=== PATIENT | female | born 1960 | race Caucasian/White ===

== ENCOUNTER 2019-04-13 19:41 | Inpatient (IN) | payer BC ==
[~2019-04-13] VITALS: Ht 182.9 cm; Wt 100.5 kg
[~2019-04-13 19:41] MED LIST: PROBIOTIC1 EAC1 PO
[2019-04-13] MEDS ORDERED: NAPR220 PO (19:58)
[2019-04-13 20:21] LABS: BASOPHILS ABSOLUTE AUTO 0.03 K/mm3 (0.00-0.23); BASOPHILS PERCENT AUTO 1 % (0-2); EOSINOPHILS PERCENT AUTO 2 % (0-6); Hematocrit 22.8 % (33.0-51.0); Hemoglobin 6.9 g/dL (11.5-16.0); IMMATURE GRAN ABSOLUTE AUTO 0.02 K/mm3 (0.00-0.10); IMMATURE GRAN PERCENT AUTO 0 % (0-1); LYMPHOCYTES PERCENT AUTO 34 % (21-46); MONOCYTES ABSOLUTE AUTO 0.47 K/mm3 (0.16-1.47); MONOCYTES PERCENT AUTO 8 % (4-13); Mean Corpuscular HGB 26.6 pg (26.0-34.0); Mean Corpuscular HGB Conc 30.3 g/dL (31.5-36.5); Mean Corpuscular Volume 88 fL (80-100); NEUTROPHILS PERCENT AUTO 56 % (41-73); Platelet Count 360 K/mm3 (150-400); RDW Coefficient Variation 14.5 % (11.7-14.2); RDW Standard Deviation 46.3 fL (35.1-46.3); Red Blood Cell Count 2.59 M/mm3 (3.80-5.20); White Blood Cell Count 6.12 K/mm3 (4.00-11.30)
[2019-04-13 20:44] LABS: Alanine Aminotransfer (ALT/SGP 19 U/L (12-78); Albumin, Blood 3.5 g/dL (3.4-5.0); Albumin/Globulin Ratio 1.2 (0.8-1.8); Alk Phos 53 U/L (50-136); Anion Gap 7 mmol/L (6-16); Aspartate Aminotrans (AST/SGOT 13 U/L (12-37); Bilirubin, Total 0.2 mg/dL (0.1-1.0); Blood Urea Nitrogen 19 mg/dL (8-24); CO2, Blood 25 mmol/L (21-32); Calcium, Blood 8.6 mg/dL (8.5-10.1); Chloride, Blood 111 mmol/L (98-108); Creatinine, Blood 0.73 mg/dL (0.40-1.00); Glomerular Filtration Rate >60 (60-); Glucose, Blood 89 mg/dL (70-99); Potassium, Blood 3.7 mmol/L (3.5-5.5); Sodium, Blood 143 mmol/L (136-145); Total Protein, Blood 6.5 g/dL (6.4-8.2); Troponin I <0.015 ng/mL (0.000-0.040)
[2019-04-13] MEDS ORDERED: Prednisone20 MG PO (21:23)
[2019-04-13] MEDS ORDERED: INCRUSE ELLI62.5 MCG INH (21:23)
--- NOTE | 2019-04-13 23:39 | NUR ---
ADMISSION NOTE PT ARRIVED TO UNIT VIA STRETCHER AND AMBULATES INDEPENDENTLY TO BED. PT IS PALE, DENIES ANY CP OR SOB AT THE TIME. AWAITING BLOOD FROM LAB. BLOOD CONSENT SIGNED.
--- NOTE | 2019-04-13 23:40 | NUR ---
BLOOD TRANSFUSION BAG 1 OF 2 STARTED AT 2342. WILL REMAIN IN RM AND REASSESS IN 15 MINUTES FOR TRANSFUSION REACTION.
--- NOTE | 2019-04-14 02:14 | NUR ---
2ND BLOOD TRANSFUSION STARTED, 2 NURSE VERIFY WITH ASHLEE TSANG.
--- NOTE | 2019-04-14 04:18 | NUR ---
2ND TRANSFUSION COMPLETE. PT DENIES ANY SOB, CHILLS, N/V, OR ANY OTHER FEELINGS OF DISCOMFORT OR S/SX OF REACTION. VSS THROUGHOUT TRANSFUSION. WILL CONT TO MONITOR.
--- NOTE | 2019-04-14 06:29 | NUR ---
SHIFT SUMMARY PT ADMITTED TONIGHT FOR GI BLEED, RECTAL EXAM BY ER DR CORTEZ +. PT REPORTS HAVING SOB AND CP X1 DAY, NO GI SYMPTOMS. DENIES BLOODY STOOL OR EMESIS. HGB 6.9 AT ADMISSION, PT RECIEVED 2 UNITS OF PRBCs TONIGHT. TOLERATED WELL. DR WISDOM CONSULTED, PLAN FOR UPPER ENDOSCOPY @ 1430 TENTATIVELY. NPO SINCE ADMISSION. PROTONIX DRIP AT 10 ML/HR. LS CLEAR, RESP E/U ON RA. WILL CONT TO MONITOR AND PROVIDE CARE UNTIL PRESUMED BY ONCOMING RN.
[2019-04-14 07:00] LABS: BASOPHILS ABSOLUTE AUTO 0.04 K/mm3 (0.00-0.23); BASOPHILS PERCENT AUTO 1 % (0-2); EOSINOPHILS ABSOLUTE AUTO 0.06 K/mm3 (0.00-0.68); EOSINOPHILS PERCENT AUTO 1 % (0-6); Hematocrit 27.5 % (33.0-51.0); Hemoglobin 8.8 g/dL (11.5-16.0); IMMATURE GRAN ABSOLUTE AUTO 0.01 K/mm3 (0.00-0.10); IMMATURE GRAN PERCENT AUTO 0 % (0-1); LYMPHOCYTES ABSOLUTE AUTO 2.11 K/mm3 (0.84-5.20); LYMPHOCYTES PERCENT AUTO 36 % (21-46); MONOCYTES ABSOLUTE AUTO 0.51 K/mm3 (0.16-1.47); MONOCYTES PERCENT AUTO 9 % (4-13); Mean Corpuscular HGB 27.8 pg (26.0-34.0); Mean Corpuscular Volume 87 fL (80-100); NEUTROPHILS ABSOLUTE AUTO 3.18 K/mm3 (1.96-9.15); NEUTROPHILS PERCENT AUTO 54 % (41-73); Platelet Count 311 K/mm3 (150-400); RDW Standard Deviation 44.7 fL (35.1-46.3); Red Blood Cell Count 3.16 M/mm3 (3.80-5.20); White Blood Cell Count 5.91 K/mm3 (4.00-11.30)
--- NOTE | 2019-04-14 07:27 | NUR ---
PT STARTED ON SECOND BAG OF PROTONIX GTT.
--- NOTE | 2019-04-14 12:14 | NUR ---
INTO SDS VIA [employer]. PT A&OX3-DENIES PAIN OR NAUSEA AT THIS TIME. HISTORY AND ALLERGIES REVIEWED. LUNGS CLEAR-SATS>90% ON RA. NPO STATUS CONFIRMED.
--- NOTE | 2019-04-14 12:37 | NUR ---
04/14/19 1237 Shakeel Gage PATIENT DETERMINED TO BE ASA APPROPRIATE FOR PROPOFOL SEDATION PRIOR TO START OF PROCEDURE BY . 3-LEAD EKG REVIEWED WITH PHYSICIAN PRIOR TO START OF PROCEDURE.PATIENT CONFIRMS NPO STATUS AND AGREES WITH SCHEDULED PROCEDURE.History, Chart, Medications and Allergies reviewed before start of procedure.MONITOR INTACT WITH CONTINUOUS PULSE OXIMETRY AND INTERMITTENT BP.O2 VIA N/C INTACT THROUGHOUT SEDATION/PROCEDURE.Bite Block Placed
[2019-04-14 19:36] LABS: Percent Saturation 7.6 % (15.0-50.0)
--- NOTE | 2019-04-14 19:59 | NUR ---
SHIFT SUMMARY. ENDOSCOPY COMPLETED TODAY BY DR. WISDOM. DR. WISDOM REQUESTING CT ABD W CONTRAST. PT WITH HX OF ALLERGY TO IODINE, SHE REPORTS THAT SHE HAD HIVES. DR SALINAS NOTIFIED, HE PLACED ORDERS FOR PREDNISONE AND BENADRYL PER PROTOCOL TO PREVENT REACTION. PT HAS PLAN TO TRAVEL TO [place] ON SUNDAY FOR [address] WISDOM REQUESTING THAT SHE FOLLOW UP IN HIS OFFICE SUNDAY FOR REPEAT LABS. PT IS ASYMPTOMATIC THIS SHIFT.
--- NOTE | 2019-04-14 21:57 | NUR ---
LATE ENTRY FOR 1920 PT REQUESTING "SOMETHING FOR ANXIETY" REPORTS FEELING ANXIOUS ALREADY, AND PT TO RECIEVE HIGH DOSE OF ORAL PREDNISONE THAT IS PART OF ALLERGY PROTOCOL WILL MAKE PT MORE TACHYCARDIC. CALLED DR. SALINAS TO REPORT PT REQUEST. ORDERS 0.25 MG XANAX Q6H PRN.
--- NOTE | 2019-04-15 05:00 | NUR ---
SHIFT SUMMARY NO ACUTE CHANGES TONIGHT. PT IS A&OX4, INDEPENDENT IN RM. PT TO HAVE CT ABD c IV CONTRAST. HX OF ALLERGIC REACTION TO IODINE, RASH AND HIVES. PT STARTED ON ALLERGY PROTOCOL PER RADIOLOGY, PREDNISONE AND BENADRYL. 150 MG PO PREDISONE ADMINISTERED TWICE TONIGHT PER ORDERS, AND PT WILL HAVE ONE MORE DOSE AT 0800 ALONG WITH BENADRYL ONE HOUR PRIOR TO CT TIME. SEE EMAR. PT REQUESTS PRN ANXIETY MED D/T TACHYCARDIA AND PALPATIONS R/T HEAVY STEROID USE AND "ANXIETY AT BASELINE". PT CONT TO TOLERATE REG DIET, DENIES N/V. WILLCONT TO MONITOR AND PROVIDE CARE UNTIL PRESUMED BY ONCOMING RN.
--- NOTE | 2019-04-15 06:16 | NUR ---
READI-CAT BARIUM SULFATE ORAL SUSPENSION SENT DOWN FROM RADIOLOGY. PT TO COMPLETE ONE 12 OZ CUP AT 0700, ONE 12 0Z CUP AT 0800, AND ONE 12 OZ CUP AT 0900. WILL REPORT THIS TO NIRANJAN RN AND PATIENT.
[2019-04-15] MEDS ORDERED: ACET325 PO (11:31)
[2019-04-15] MEDS ORDERED: FERSU300 PO (11:31)
[2019-04-15] MEDS ORDERED: OMEPRAZOLE20 MG PO (11:33)
--- NOTE | 2019-04-15 12:21 | NUR ---
SUMMARY PT DISCHARGED TO HOME, PT AND SPOUSE VERBALIZED UNDERSTAINDING OF DISCHARGE ORDERS REGARDING FOLLOW UP AND MEDICATIONS, PT DECLINED A WHEELCHAIR AND WAS ABLE TO AMBULATE SAFELY TO THE [facility] WITH HER SPOUSE
== END 2019-04-15 12:17 | disposition home or self-care (01) | DRG 378 ==
LOC: ER 19:41 → MEDS 22:17 → ER 23:05 → MEDS 23:12 → ENPENDDIS 04-15 13:04
PROVIDERS: Emergency Medicine; ADMIT Internal Medicine
PROC: 30233N1 Transfusion of Nonautologous Red Blood Cells into Peripheral Vein, Percutaneous Approach (ICD-10-PCS; principal; 2019-04-13)
PROC: 0DD98ZX Extraction of Duodenum, Via Natural or Artificial Opening Endoscopic, Diagnostic (ICD-10-PCS; 2019-04-14)
DX: K26.4 Chronic or unspecified duodenal ulcer with hemorrhage (principal); D62 Acute posthemorrhagic anemia; J44.1 Chronic obstructive pulmonary disease with (acute) exacerbation; M19.90 Unspecified osteoarthritis, unspecified site; I49.3 Ventricular premature depolarization; N89.8 Other specified noninflammatory disorders of vagina; I51.7 Cardiomegaly; K21.9 Gastro-esophageal reflux disease without esophagitis; T39.395A Adverse effect of other nonsteroidal anti-inflammatory drugs [NSAID], initial encounter; Y92.9 Unspecified place or not applicable
CPT/HCPCS: 36415; 36430; 71046; 74160; 80053; 82272; 82941; 83540; 83550; 83880; 84484; 85025; 86850; 86900; 86901; 86923; 88305; 88342; 93005; 93010; 99285-25; C9113; J0171; J2250; J2704; J7120; J7512; P9016; Q0163; Q9967

== ENCOUNTER 2019-06-16 07:27 | Day surgery (SDC) | payer BC ==
[~2019-06-16] VITALS: Ht 182.9 cm; Wt 98.5 kg
[~2019-06-16 07:27] MED LIST changes: +ACET325 PO; +FERSU300 PO; +INCRUSE ELLI62.5 MCG INH; +NAPR220 PO; +OMEPRAZOLE20 MG PO; +Prednisone20 MG PO
== END 2019-06-16 09:24 | disposition home or self-care (01) ==
LOC: ORSCSDS 07:27
PROVIDERS: Internal Medicine Gastroenterology
PROC: 0DB98ZX Excision of Duodenum, Via Natural or Artificial Opening Endoscopic, Diagnostic (ICD-10-PCS; principal; 2019-06-16 08:45)
PROC: 0DB68ZX Excision of Stomach, Via Natural or Artificial Opening Endoscopic, Diagnostic (ICD-10-PCS; principal; 2019-06-16 08:45)
DX: D50.9 Iron deficiency anemia, unspecified (principal); K44.9 Diaphragmatic hernia without obstruction or gangrene; K29.80 Duodenitis without bleeding; Z87.11 Personal history of peptic ulcer disease
CPT/HCPCS: 88305; 88342; J2405; J2704; J7120

== ENCOUNTER → 2022-06-13 | Outpatient (CLI) | payer BC ==
[2022-06-14 15:10] LABS: HPV 16 Negative (Negative); HPV 18 Negative (Negative); HPV OTHER HR TYPES Negative (Negative)
== END | disposition home or self-care (01) ==
LOC: LAB 10:00 → LAB SHORT 10:00
PROVIDERS: Obstetrics & Gynecology
DX: Z12.4 Encounter for screening for malignant neoplasm of cervix (principal)
CPT/HCPCS: 87624; G0123